=== PATIENT | female | born 1955 | race Caucasian/White ===

== ENCOUNTER → 2018-06-08 | Outpatient (CLI) | payer OTHER ==
[~2018-06-08] MED LIST: LIDOCAINE 1% 300 MG/30 ML SDV ONE
== END ==
LOC: FIMAGING 12:22
PROVIDERS: ATTEND Internal Medicine Endocrinology, Diabetes & Metabolism
PROC: 0G9H3ZX Drainage of Right Thyroid Gland Lobe, Percutaneous Approach, Diagnostic (ICD-10-PCS; principal; 2018-06-08)
DX: D34 Benign neoplasm of thyroid gland (principal); E04.1 Nontoxic single thyroid nodule